=== PATIENT | female | born 1980 | race Caucasian/White ===

== ENCOUNTER 2018-10-13 01:12 | Inpatient (IN) | payer BC ==
[2018-10-13] MEDS ORDERED: DEXTROSE 5%-LACTATED RINGERS 1,000 ML IV SCH ×2 (01:50→04:45)
[2018-10-13 02:17] LABS: BASO % 0.4 % (0-2.0); EOS % 1.2 % (0-4.5); HEMATOCRIT 35.5 % (32.4-45.2); HEMOGLOBIN 12.7 GM/dL (10.7-15.3); LYMPH % 18.3 % (8-40); MCH 34.1 pg (25.7-33.7); MCHC 35.7 g/dl (32.0-36.0); MEAN CELL VOLUME 95.7 fl (80-96); MONO % 7.6 % (3.8-10.2); NEUT % 72.5 % (42.8-82.8); PLATELET COUNT 213 K/MM3 (134-434); RBC 3.71 M/mm3 (3.60-5.2); RDW 13.6 % (11.6-15.6); WHITE BLOOD COUNT 8.9 K/mm3 (4.0-10.0)
[2018-10-13 02:29] LABS: INR 0.92 (0.83-1.09); PROTHROMBIN TIME (PATIENT) 10.8 SEC (9.7-13.0)
[2018-10-13 02:31] LABS: ACTIVATED PTT 25.5 SECONDS (25.2-36.5)
[2018-10-13 02:33] VITALS: BMI 33.7
[2018-10-13 02:39] LABS: ANION GAP 9 MMOL/L (8-16); BLOOD UREA NITROGEN 9 mg/dL (7-18); CALCIUM 8.8 mg/dL (8.5-10.1); CHLORIDE 105 mmol/L (98-107); CO2 22 mmol/L (21-32); CREATININE 0.6 mg/dL (0.55-1.3); GLUCOSE,RANDOM 84 mg/dL (74-106); POTASSIUM 4.1 mmol/L (3.5-5.1); SODIUM 136 mmol/L (136-145)
[2018-10-13] MEDS ORDERED: OXYTOCIN 30 UNITS in 0.9% NS 30 UNIT/500 ML INFUS.BAG IVPB SCH (02:45)
[2018-10-13] MEDS ORDERED: BUTORPHANOL TARTRATE 2 MG/ML VIAL IVPB ONE (02:45)
[2018-10-13] MEDS ORDERED: PROMETHAZINE HCL 25 MG/1 ML VIAL IVPB ONE (02:45)
[2018-10-13] MEDS ORDERED: BUTORPHANOL TARTRATE 1 MG/ML VIAL ONE (03:03)
[2018-10-13] MEDS ORDERED: PROMETHAZINE HCL 25 MG/1 ML VIAL ONE (03:03)
[2018-10-13] MEDS ORDERED: OXYTOCIN 30 UNITS in 0.9% NS 30 UNIT/500 ML INFUS.BAG IVPB ONE (03:03)
[2018-10-13] MEDS ORDERED: OXYTOCIN 20 UNITS in 0.9% NS 20 UNIT/1,000 ML INFUS.BAG IV ONE ×2 (04:34→07:41)
[2018-10-13] MEDS ORDERED: LIDOCAINE HCL 1% PRESERVATIVE FREE - 30ML VIAL ONE (04:36)
[2018-10-13] MEDS ORDERED: ACETAMINOPHEN 325 MG TABLET (FP) PO PRN (05:10)
[2018-10-13] MEDS ORDERED: BENZOCAINE 28 GM HEMORRHOIDAL OINTMENT TP PRN (05:10)
[2018-10-13] MEDS ORDERED: METHYLERGONOVINE MALEATE 0.2 MG/1 ML AMP IM PRN (05:10)
[2018-10-13] MEDS ORDERED: BISACODYL 10 MG SUPP.RECT RC PRN (05:10)
[2018-10-13] MEDS ORDERED: WITCH HAZEL 50% (TUCKS) 40 PAD/JAR PAD TP PRN (05:10)
[2018-10-13] MEDS ORDERED: IBUPROFEN 600 MG TABLET (FP) PO PRN (05:10)
[2018-10-13] MEDS ORDERED: BENZOCAINE 20% 57 GM BOTTLE TP PRN (05:10)
[2018-10-13] MEDS ORDERED: OXYTOCIN 20 UNITS in 0.9% NS 20 UNIT/1,000 ML INFUS.BAG IV SCH (05:15)
--- NOTE | 2018-10-13 05:19 | HP ---
Past Medical History - Primary Care Physician PCP:: Tr Nguyen - Admission Chief Complaint: 38yo P1 with at EGA 40wks presented in spontaneous labor. History of Present Illness: Pt presented with SROM since 12:50am and spontaneous irregular contractions. She was noted to be 3cm dilated on admission. The heart rate remained Category I. The patient's contractions were augmented with pitocin and she progressed to 10cm w/o delay. complicated by AMA, obesity, anemia. Vag GBS was negative. 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: No: Alzheimer's, CVA, Dementia, Migraine, Multiple Sclerosis, Peripheral Neuropathy, Parkinson's, Seizure, Syncope, TIA, Vertigo, Other Cardiovascular: No: AFIB, Aneurysm, Aortic Insufficiency, Aortic Stenosis, CAD, CHF, Deep Vein Thrombosis, HTN, Hyperlipdemia, FL, Mitral Insufficiency, Mitral Stenosis, Murmur, Pulmonary Hypertension, Other Pulmonary: No: Asthma, Bronchitis, Cancer, COPD, O2 Dependent, Pneumonia, Previously Intubated, Pulmonary Embolus, Pulmonary Fibrosis, Sleep Apnea, Other Gastrointestinal: No: Ascites, Cancer, Constipation, Crohn's Disease, Diverticulitis, Diverticulosis, Esophageal Varices, Gastritis, GERD, GI Bleed, Hemorrhoids, Hiatal Hernia, Inflamatory Bowel Disease, Irritable Bowel Disease, Pancreatitis, Peptic Ulcer Disease, Ulcerative Colitis, Other Hepatobiliary: No: Cirrhosis, Cholelithiasis, Cholecystitis, Choledocholithiasis , Hepatitis A, Hepatitis B, Hepatitis C, Other Renal/: No: Renal Failure, Renal Inusuff, BPH, Cancer, Hematuria, Hemodialysis , Neurogenic Bladder, Renal Calculi, UTI, Other Reproductive: No: Ectopic , Endometriosis, Fibroids, PID, Polycystic Ovary Syndrome, Postmenopausal, Other ...: 5 ...Para: 1 ...Term: 1 () ...: 0 ...Spon : 3 ...Induced : 0 ...Multiple Gestation: 0 ...LMP: 01/09/18 ... Weeks Gestation by Dates: 40 ...EDC by Dates: 10/13/18 Heme/Onc: Yes: Anemia Infectious Disease: No: AIDS, C-Diff, Herpes Zoster, HIV, MRSA, STD's, Tuberculosis, VREF, Other Psych: No: Addictions, Anxiety, Bipolar, Depression, Panic, Psychosis, Schizophrenia, Other Musculoskeletal: No: Bursitis, Chronic low back pain, Hemiparesis, Hemiplegia, Osteoarthritis, Paraplegia, Other Rheumatology: No: Fibromyalgia, Gout, Lupus, Rheumatoid Arthritis, Sarcoidosis, Vasculitis, Other ENT: No: Allergic Rhinitis, Sinusitis, Other Endocrine: No: Jackson's Disease, [place]'s Disease, Diabetes Insipidus, Diabetes Mellitus, Hyperparathyroidism, Hyperthyroidism, Hypothyroidism, Osteopenia, SIADH, Other Dermatology: No: Basal Cell, Cellulitis, Eczema, Melanoma, Psoriasis, Squamous Cell, Other - Past Surgical History Past Surgical History: Yes: None Hx Myomectomy: No Hx Transabdominal Cerclage: No - Smoking History Smoking history: Never smoked Aproximately how many cigarettes per day: 0 - Alcohol/Substance Use Hx Alcohol Use: No History of Substance Use: reports: None - Social History Usual Living Arrangement: Yes: With Significant Other, With Child ADL: Independent 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 History of Recent Travel: No Home Medications - Allergies Allergies/Adverse Reactions: Allergies Allergy/AdvReac Type Severity Reaction Status Date / Time No Known Allergies Allergy Verified 10/13/18 02:35 - Home Medications Home Medications: Ambulatory Orders Ferrous Sulfate 325 mg PO DAILY 10/13/18 Pnv No.95/Ferrous Fum/Folic AC [ Vitamin Tablet] 1 each PO DAILY Family Disease History - Family Disease History Family History: Unremarkable Review of Systems - Review of Systems Constitutional: reports: Other (Labor) Eyes: reports: No Symptoms HENT: reports: No Symptoms Neck: reports: No Symptoms Cardiovascular: reports: No Symptoms Respiratory: reports: No Symptoms Gastrointestinal: reports: No Symptoms Genitourinary: reports: No Symptoms Breasts: reports: No Symptoms Reported Musculoskeletal: reports: No Symptoms Integumentary: reports: No Symptoms Neurological: reports: No Symptoms Endocrine: reports: No Symptoms Hematology/Lymphatic: reports: No Symptoms Psychiatric: reports: No Symptoms Physical Exam - Maternity Vital Signs: Vital Signs Temperature 98.4 F 10/13/18 04:00 Pulse Rate 74 10/13/18 04:00 Respiratory Rate 20 10/13/18 04:00 Blood Pressure 132/80 10/13/18 04:00 O2 Sat by Pulse Oximetry (%) Constitutional: Yes: Well Nourished, No Distress, Calm Eyes: Yes: WNL, Conjunctiva Clear HENT: Yes: WNL, Atraumatic, Normocephalic Neck: Yes: WNL, Supple, Trachea Midline Cardiovascular: Yes: WNL, Regular Rate and Rhythm Lungs: Clear to auscultation, Normal air movement - Abdominal Exam/OB Fundal Height: 39 Number of Fetuses: Single Presentation: Vertex Contractions: Yes Regularity: Regular Intensity: Moderate Monitor Mode: External Heart Rate (range): 140 Heart Rate Location: Midline Category: I Accelerations: None Decelerations: None - Vaginal Exam/OB Vaginal Bleediing: No Speculum Exam: No Dilatation (cm): 10 Effacement (%): 100 Amniotic Membrane Status: Ruptured Presentation: Vertex/Position - Physical Exam Musculoskeletal: Yes: WNL Extremities: Yes: WNL Edema: No Integumentary: Yes: WNL Deep Tendon Reflex Grade: Normal +2 ...Motor Strength: WNL Psychiatric: Yes: WNL, Alert, Oriented - Labs Lab Results: CBC, BMP 10/13/18 02:00 10/13/18 02:00 Hemorrhage Risk Assessment - Risk Factors Medium Risk Factors: Yes: None High Risk Factors: Yes: None Risk Score: 1 Risk Level: Medium Risk Imaging - Results Ultrasound: Report Reviewed Assessment/Plan 38yo P1 with at EGA 40wks presented in spontaneous labor. Pt progressed to 10cm and had a w/o complications.
[2018-10-13] MEDS: PRENATAL VITAMINS W/ FOLIC ACID TABLET (FP) PO SCH (10:47)
[2018-10-14 09:20] LABS: BASO % 0.2 % (0-2.0); EOS % 1.2 % (0-4.5); HEMATOCRIT 30.5 % (32.4-45.2); HEMOGLOBIN 10.7 GM/dL (10.7-15.3); MCH 33.9 pg (25.7-33.7); MEAN CELL VOLUME 96.8 fl (80-96); MEAN PLT VOLUME 8.1 fl (7.5-11.1); MONO % 6.7 % (3.8-10.2); NEUT % 74.9 % (42.8-82.8); PLATELET COUNT 191 K/MM3 (134-434); RBC 3.15 M/mm3 (3.60-5.2); RDW 13.8 % (11.6-15.6); WHITE BLOOD COUNT 9.8 K/mm3 (4.0-10.0)
[2018-10-14] MEDS: PRENATAL VITAMINS W/ FOLIC ACID TABLET (FP) PO SCH (09:29)
--- NOTE | 2018-10-14 12:39 | PN ---
Post Progress Note - Subjective Subjective: Patient without acute complaints. Reports tolerating oral intake without nausea or vomiting. Ambulating without dizziness. Denies fevers or chills. Pain well controlled with oral pain medication. Passing flatus, no BM. Post Day: 1 Type of Delivery: Vital Signs: Vital Signs Temperature 97.9 F 10/14/18 08:57 Pulse Rate 83 10/14/18 08:57 Respiratory Rate 20 10/14/18 08:57 Blood Pressure 121/76 10/14/18 08:57 O2 Sat by Pulse Oximetry (%) Breast Exam: Yes: Soft Uterus: Yes: Fundus Firm, Fundus below umbilicus Abdomen/GI: Yes: Abdomen soft, Passing flatus, Tolerating PO Lochia: Yes: Rubra Lochia, amount: Small Extremities: Yes: Calves non-tender Perineum: Yes: Intact Activity: Ambulating - Labs Labs: CBC WBC 9.8 K/mm3 (4.0-10.0) 10/14/18 08:30 RBC 3.15 M/mm3 (3.60-5.2) L 10/14/18 08:30 Hgb 10.7 GM/dL (10.7-15.3) 10/14/18 08:30 Hct 30.5 % (32.4-45.2) L 10/14/18 08:30 MCV 96.8 fl (80-96) H 10/14/18 08:30 MCH 33.9 pg (25.7-33.7) H 10/14/18 08:30 MCHC 35.0 g/dl (32.0-36.0) 10/14/18 08:30 RDW 13.8 % (11.6-15.6) 10/14/18 08:30 Plt Count 191 K/MM3 (134-434) 10/14/18 08:30 MPV 8.1 fl (7.5-11.1) 10/14/18 08:30 Absolute Neuts (auto) 7.4 K/mm3 (1.5-8.0) 10/14/18 08:30 Neutrophils % 74.9 % (42.8-82.8) 10/14/18 08:30 Lymphocytes % 17.0 % (8-40) 10/14/18 08:30 Monocytes % 6.7 % (3.8-10.2) 10/14/18 08:30 Eosinophils % 1.2 % (0-4.5) 10/14/18 08:30 Basophils % 0.2 % (0-2.0) 10/14/18 08:30 Nucleated RBC % 0 % (0-0) 10/14/18 08:30 Assessment/Plan 38yo P2 s/p , doing well stable, afebrile. Asymptomatic for anemia. care instructions reviewed. Continue routine care. Ambulation encouraged Discharge instruction reviewed.
--- NOTE | 2018-10-14 18:33 | DS ---
Physical Exam-DIRECTOR NEW PRODUCT Vital Signs: Vital Signs Temperature 97.9 F 10/14/18 08:57 Pulse Rate 83 10/14/18 08:57 Respiratory Rate 20 10/14/18 08:57 Blood Pressure 121/76 10/14/18 08:57 O2 Sat by Pulse Oximetry (%) Constitutional: Yes: Well Nourished, No Distress, Calm Eyes: Yes: WNL, Conjunctiva Clear HENT: Yes: WNL, Atraumatic, Normocephalic Neck: Yes: WNL, Supple, Trachea Midline Cardiovascular: Yes: WNL, Regular Rate and Rhythm Respiratory: Yes: WNL, Regular, CTA Bilaterally Gastrointestinal: Yes: WNL, Normal Bowel Sounds, Soft ...Rectal Exam: Yes: Deferred Renal/: Yes: WNL Internal Exam Deferred: Yes ....Post : Yes: Uterus firm, Uterus non-tender, Slight lochia rubra Breast(s): Yes: WNL Musculoskeletal: Yes: WNL Extremities: Yes: WNL Edema: Yes Edema: LLE: 1+, RLE: 1+ Integumentary: Yes: WNL Neurological: Yes: WNL, Alert, Oriented ...Motor Strength: WNL Psychiatric: Yes: WNL, Alert, Oriented Labs: CBC, BMP 10/14/18 08:30 10/13/18 02:00 Delivery - Delivery Vaginal Delivery: No Problems, Spontaneous Type of Anesthesia: Local Episiotomy/Laceration: Perineal Extension/lac, 2nd degree EBL (cc): 300 Delivery, Single - Stages of Labor Date 1st Stage Initiatied: 10/13/18 Time 1st Stage Initiated: 03:15 Date 2nd Stage Initiated: 10/13/18 Time 2nd Stage Initiated: 04:35 Date of Delivery: 10/13/18 Time of Delivery: 04:51 Time Placenta Delivered: 04:56 Placenta: Yes: Spontaneous, Normal Configuration - Condition of Cutter Head Sharpener/Masonry Inspector Present: No Infant Gender: Male Weight: 3.26 kg Position: Left, OA Total Hours ROM (Hrs/Mins): 4h6min - 1 Minute Total Score: 9 5 Minutes Total Score: 9 - Feeding Plan Initial Plan: Elected not to breastfeed exclusively throughout hospitalization Discharge Summary Reason For Visit: LABOR ADMIT Spontaneous labor at term Procedures: Principal: Hospital Course: Normal labor and recovery Condition: Good - Instructions Diet, Activity, Other Instructions: Physical activity Resume your normal everyday activity as tolerated no heavy lifting or exercise until seen by your surgeon. You may walk unlimited annette of and climb stairs. You may resume driving the car when you feel safe and comfortable behind the wheel. No sexual activity as instructed. Wound care If you have a bandage, leave it on, and keep dry for 48-72 hours. After that time discard the outer bandage. If they are tapes on the skin under the out of bandage leave them in place. They will peel off in the next 7 to 10 days. Do Not Peel them off. You may shower the day after surgery. If there are tapes present on the skin, you may shower over them. Diet There are no dietary restrictions. Eat healthy, high-fiber foods. Drink 6 to 8 glasses of liquid each day. This will assist in keeping your bowels are regular. Pain management You may take Tylenol or acetaminophen or Ibuprofen (for example, Motrin, Advil etc.) from my pain prescription medication is ordered should be taken as prescribed for moderate to severe pain. Call MD for any of the following: Severe pain not relieved by medication Fever of 101 or higher Excessive bleeding or drainage on dressing Inability to urinate Referrals: Tr Nguyen MD [Staff Physician] - Noam Goodwin MD [Staff Physician] - Disposition: HOME - Home Medications Comprehensive Discharge Medication List: Ambulatory Orders Ferrous Sulfate 325 mg PO DAILY 10/13/18 Pnv No.95/Ferrous Fum/Folic AC [ Vitamin Tablet] 1 each PO DAILY
--- NOTE | 2018-10-14 18:37 | PN ---
Delivery - Delivery Vaginal Delivery: No Problems, Spontaneous Type of Anesthesia: Local Episiotomy/Laceration: Perineal Extension/lac, 2nd degree EBL (cc): 300 Delivery, Single - Stages of Labor Date 1st Stage Initiatied: 10/13/18 Time 1st Stage Initiated: 03:15 Date 2nd Stage Initiated: 10/13/18 Time 2nd Stage Initiated: 04:35 Date of Delivery: 10/13/18 Time of Delivery: 04:51 Date Placenta Delivered: 10/13/18 Time Placenta Delivered: 04:56 Placenta: Yes: Spontaneous, Normal Configuration - Condition of Recreation Facility Manager/Business Development Coordinator Present: No Infant Gender: Male Weight: 3.26 kg Position: Left, OA Total Hours ROM (Hrs/Mins): 4h6min - 1 Minute Total Score: 9 5 Minutes Total Score: 9 - [place] Feeding Plan Initial Plan: Elected not to breastfeed exclusively throughout hospitalization Remarks - Remarks Remarks: Uncomplicated
[2018-10-14] MEDS ORDERED: SENNOSIDES/DOCUSATE COMBO (SENNA PLUS) TABLET (UD) PO PRN (22:00)
[2018-10-15 09:17] VITALS: BP 117/81; PULSE 74; TEMP 98.4
[2018-10-15] MEDS: PRENATAL VITAMINS W/ FOLIC ACID TABLET (FP) PO SCH (09:48)
== END 2018-10-15 11:15 | disposition home or self-care (01) | DRG 807 ==
LOC: JDEL 01:12 → JLDR 01:45 → J3W 07:57
PROVIDERS: ADMIT Obstetrics & Gynecology; ATTEND Obstetrics & Gynecology
PROC: 10E0XZZ Delivery of Products of Conception, External Approach (ICD-10-PCS; principal; 2018-10-13)
PROC: 0KQM0ZZ Repair Perineum Muscle, Open Approach (ICD-10-PCS; 2018-10-13)
DX: O70.1 Second degree perineal laceration during delivery (principal); Z37.0 Single live birth; Z3A.40 40 weeks gestation of pregnancy
CPT/HCPCS: 36415; 59025; 59409; 71046-TC-FY; 80048; 85025; 85610; 85730; 86593; 86850; 86900; 86901

== ENCOUNTER 2019-09-12 12:00 | Day surgery (SDC) | payer BC ==
[2019-09-11 17:38] VITALS: BMI 31.9
[2019-09-12] MEDS ORDERED: MIDAZOLAM HCL 2 MG/2 ML SINGLE DOSE VIAL ONE ×2 (13:49)
--- NOTE | 2019-09-12 14:05 | HP ---
History & Physical Update - Physical Physical: No Change - Assessment Assessment: No Change - Plan Plan: No Change (H&P reviwed , no changes , for suction D&C, laparoscopy,RT salpingectomy)
[2019-09-12] MEDS ORDERED: EPHEDRINE SULFATE/0.9% NACL/PF 50 MG/10 ML SYRINGE NR ONE (14:10)
[2019-09-12] MEDS ORDERED: DEXAMETHASONE SOD PHOSPHATE 4 MG/1 ML VIAL ONE (14:10)
[2019-09-12] MEDS ORDERED: ceFAZolin SODIUM 1 GM VIAL IVPB ONE (14:10)
[2019-09-12] MEDS ORDERED: ROCURONIUM BROMIDE 50 MG/5 ML SYRINGE ONE (14:15)
[2019-09-12] MEDS ORDERED: PROPOFOL 20 ML ONE (14:17)
[2019-09-12] MEDS ORDERED: NEOSTIGMINE METHYLSULFATE 0.5 MG/ML - 10 ML MDV ONE (14:58)
--- NOTE | 2019-09-12 14:58 | PN ---
Progress Note (short form) - Note Progress Note: I assisted Dr. Goodwin at the resection of ectopic for the entirety of the case.
[2019-09-12] MEDS ORDERED: IBUPROFEN 800 MG/8 ML IJ IVPB PRN (16:25)
[2019-09-12] MEDS ORDERED: oxyCODONE HCL 5 MG TABLET PO PRN (16:25)
[2019-09-12] MEDS ORDERED: IBUPROFEN 600 MG TABLET (FP) PO PRN (16:25)
[2019-09-12] MEDS ORDERED: ONDANSETRON 4 MG/2 ML VIAL IVPUSH PRN (16:25)
[2019-09-12] MEDS ORDERED: ELECTROLYTE-148 SOLN 1,000 ML IV SCH (16:30)
[2019-09-12] MEDS ORDERED: LACTATED RINGERS SOLUTION 1,000 ML IV SCH (16:30)
--- NOTE | 2019-09-12 16:40 | OP ---
Operative Note - Note: Operative Date: 09/12/19 Pre-Operative Diagnosis: hetrotrophic ,. Rt tubal ectopic, missed Operation: suction D&C , laparoscopy RT salpingectomy Findings: RT tubal ectopic, LT tube and bilateral ovaries normal, fundal intramuarl fibroid Post-Operative Diagnosis: Same as Pre-op Surgeon: Noam Goodwin Chief Operator: Kamlesh Swartz Anesthesia: General Specimens Removed: Rt tube and content, uterine content Estimated Blood Loss (mls): 200 Drains & Tubes with Location: ponce Blood Volume Replaced (mls): 0 Operative Report Dictated: Yes
[2019-09-12 17:30] VITALS: TEMP 98.2
[2019-09-12] MEDS ORDERED: ACETAMINOPHEN INJECTION 100 ML IVPB ONE (18:38)
[2019-09-12] MEDS ORDERED: ACETAMINOPHEN 1000 MG/100 ML VIAL (NON FORMULARY) IVPB ONE (18:45)
[2019-09-12 19:29] VITALS: BP 119/66; PULSE 64
--- NOTE | 2019-09-13 08:25 | OP ---
DATE OF OPERATION: 09/12/2019 PREOPERATIVE DIAGNOSIS: Heterotrophic with right tubal ectopic with missed and nonviable intrauterine . SURGEON: Noam Goodwin MD ANESTHESIA: General. ESTIMATED BLOOD LOSS: 200 mL. OPERATION: Patient was taken to the operating room. Under adequate general anesthesia abdomen and perineum were prepped and draped. Vagina was cleaned and then pelvic exam showed external genitalia to be normal. Vagina: A small amount of dark blood was seen. Os was closed with small amount of bleeding from the os. Uterus was prominent. Adnexa: No mass was palpable. Then with a weighted speculum in the vagina anterior lip of the cervix was grasped. Cervix was gradually dilated with Hegar dilator and then suction curet was inserted and the contents were suctioned. Then Hulka was introduced into the uterine cavity for manipulation. Salas was inserted and patient was prepped and draped for the pelviscopy. A small infraumbilical skin incision was made. Veress needle was introduced, pneumoperitoneum established. A 5-mm trocar introduced through the suprapubic area and then the scope was introduced. Then a 5-mm trocar was inserted through the right hypogastric area and 10-mm through the left hypogastric area under direct vision. Then visualization of the pelvic area showed cul-de-sac free of adhesion. There was a small amount of blood in the cul-de-sac. There was a large bluish mass on the right tube which was consistent with ectopic and the left tube and both ovaries were normal. Bladder was normal. Uterus was enlarged with a fundal intramural myoma approximately 4 to 5 cm. Then the ectopic and the right tube were grasped with a grasper and then along the mesosalpinx it was cauterized with LigaSure cautery and the tube was removed. Then an EndoCatch was introduced through the 10-mm trocar and the specimen was placed in the EndoCatch and removed through the 10-mm port. Pelvic cavity was several times irrigated. No active bleeding was seen. All the fluid was suctioned and then upper abdomen and the bowels were inspected. No other abnormality was seen. Then the left 10-mm hypogastric port was withdrawn and then the fascia was closed with 0 Vicryl suture and then trocar was withdrawn. No bleeding was seen at the site of trocar. Incisions were closed with interrupted suture of 2-0 Vicryl and 3-0 Vicryl and the skin was closed with Dermabond glue. Patient tolerated procedure well, left the OR in good condition. NOAM GOODWIN M.D. [id number]
--- NOTE | 2019-09-17 14:47 | PATH ---
Surgical Pathology Report Patient Name: JOSE RAMON KOROMA V. [facility]. Rec. #: [id number] /Age/Gender: 1980 (Age: 39) / F Account: [id number] Location: [facility] Taken: 09/12/2019 Received: 09/13/2019 Reported: 09/17/2019 Physicians: Noam Goodwin M.D. Specimen(s) Received A: PRODUCTS OF CONCEPTION B: RIGHT FALLOPIAN TUBE AND CONTENTS Clinical History Missed with right tubal and intrauterine Final Diagnosis A. PRODUCTS OF CONCEPTION, SUCTION DILATION AND CURETTAGE: DECIDUA AND GESTATIONAL ENDOMETRIUM. NO CHORIONIC VILLI OR VILLOUS TISSUE IDENTIFIED. SEE COMMENT. B. FALLOPIAN TUBE AND CONTENTS, RIGHT, LAPAROSCOPIC SALPINGECTOMY: CHORIONIC VILLI IN A BACKGROUND OF HEMORRHAGE PRESENT WITHIN THE FALLOPIAN TUBE, CONSISTENT WITH ECTOPIC . PARATUBAL CYST PRESENT. Comment: Suggest clinical correlation. Electronically Signed Day Erazo M.D. Gross Description A. Received in formalin labeled "products of conception," is a 7.0 x 5.0 x 0.8 cm aggregate of ramos brown soft tissue fragments. No definitive villous tissue or somatic tissue is identified. The entire specimen is submitted in 10 cassettes. B. Received in formalin labeled "right fallopian tube and contents," is a 3.2 cm in length dilated portion of fallopian tube. No fimbria are present. The outer surface is ramos head with adhesions. Sectioning reveals a dilated lumen containing blood clot. Separately received within the same container is a 3.5 x 2.0 x 0.8 cm red-brown blood clot with attached villous tissue. Also separately received within the same container is a 2.0 cm in greatest dimension intact cyst containing clear serous fluid. Educational Psychologist sections are submitted in 2 cassettes as follows: 1-villous tissue; 2-cross section of fallopian tube and separately received cyst. 09/13/201909/13/2019
== END 2019-09-12 19:25 | disposition home or self-care (01) ==
LOC: JASU-SURG 12:00
PROVIDERS: ATTEND Obstetrics & Gynecology
PROC: 10T24ZZ Resection of Products of Conception, Ectopic, Percutaneous Endoscopic Approach (ICD-10-PCS; principal; 2019-09-12 14:00)
PROC: 0UT54ZZ Resection of Right Fallopian Tube, Percutaneous Endoscopic Approach (ICD-10-PCS; 2019-09-12 14:00)
DX: O00.101 Right tubal pregnancy without intrauterine pregnancy (principal); D25.1 Intramural leiomyoma of uterus
CPT/HCPCS: 86850; 86900; 86901; 88305-TC; 94760; J0131